=== PATIENT | female | born 1980 | race African-American/Black ===

== ENCOUNTER 2019-12-03 20:41 | Emergency (ER) | payer OTHER, SELFPAY ==
--- NOTE | 2019-12-03 21:33 | RAD ---
EXAM: Two views chest PROVIDED CLINICAL HISTORY: Cough and vomiting for 3 days. COMPARISON: None FINDINGS: Cardiac silhouette and pulmonary vasculature are within normal limits. The lungs are clear. The osse ous structures have a normal appearance. IMPRESSION: No acute cardiopulmonary process.
[2019-12-03] MEDS ORDERED: Dexamethasone 10 MG/ML VIAL ONE (22:08)
== END 2019-12-03 22:49 | disposition home or self-care (01) ==
LOC: ERS 20:41
DX: J20.9 Acute bronchitis, unspecified (principal); F17.210 Nicotine dependence, cigarettes, uncomplicated
CPT/HCPCS: 71046; J1100

== ENCOUNTER 2020-07-28 18:33 | Emergency (ER) | payer SELFPAY | END 2020-07-28 19:00 | disposition home or self-care (01) | LOC: ERS 18:33 | DX: S13.4XXA Sprain of ligaments of cervical spine, initial encounter (principal); M54.5 Low back pain; V89.2XXA Person injured in unspecified motor-vehicle accident, traffic, initial encounter | CPT/HCPCS: 99283 ==

== ENCOUNTER 2024-08-15 02:31 | Emergency (ER) | payer SELFPAY ==
[2024-08-15] MEDS ORDERED: Promethazine 25 MG TAB ONE (02:51)
[2024-08-15] MEDS ORDERED: predniSONE 20 MG TAB ONE (02:55)
[2024-08-15] MEDS ORDERED: Ipratropium/Albuterol 3 ML NEB ONE (02:57)
== END 2024-08-15 03:29 | disposition home or self-care (01) ==
LOC: ERS 02:31
DX: J18.9 Pneumonia, unspecified organism (principal)
CPT/HCPCS: J7512; J7620; Q0169